=== PATIENT | female | born 1960 | race Caucasian/White ===

== ENCOUNTER 2018-10-11 19:12 | Emergency (ER) | payer MEDICAID ==
[~2018-10-11] VITALS: Ht 152.4 cm; Wt 55.8 kg
[~2018-10-11 19:12] MED LIST: LACL PO; MOM PO; MS CONTIN15 MG PO; NEU300 PO; NEURONTIN600 MG PO; NORCO1 TA2 PO; PREDNISONE50 MG PO; SYNTHROID0.1 MG PO; TRAMADOL HCL50 MG PO; ZOCOR20 MG PO
[2018-10-11 19:20] VITALS: Ht 152.4 cm; Wt 55.8 kg
[2018-10-11 20:57] LABS: UA SPECIFIC GRAVITY <=1.005 (1.005-1.035); microscopic required? YES; urine erythrocyte NEGATIVE (NEGATIVE)
[2018-10-11 20:59] LABS: BASOPHIL % 0.8 % (0-2); PLATELET COUNT 192 x10^3mcL (130-400); RED CELL DISTRIBUTION WIDTH 13.3 % (11.5-14.5)
[2018-10-11 21:04] LABS: CALCIUM 8.6 mg/dL (8.5-10.1); CARBON DIOXIDE 25.1 mmol/L (21-32); CHLORIDE SERUM 101 mmol/L (98-107); CREATININE SERUM 0.7 mg/dL (0.6-1.0); GFR1 > 60 mL/min; GLUCOSE SERUM 105 mg/dL (74-106); POTASSIUM SERUM 4.1 mmol/L (3.5-5.1); SODIUM SERUM 138 mmol/L (136-145)
[2018-10-11 21:10] LABS: ALBUMIN 3.6 g/dL (3.4-5.0); ALKALINE PHOSPHATASE 81 U/L (46-116); ALT/SGPT 30 U/L (14-59); AST/SGOT 18 U/L (15-37); BILIRUBIN TOTAL 0.6 mg/dL (0.20-1.00); LIPASE 80 IU/L (73-393); TOTAL PROTEIN, SERUM 7.6 g/dL (6.4-8.2)
[2018-10-11 22:40] VITALS: BP 101/59
== END 2018-10-11 22:40 | disposition home or self-care (01) ==
LOC: ED 19:12
PROVIDERS: Emergency Medicine
DX: N39.0 Urinary tract infection, site not specified (principal); R11.0 Nausea; R19.7 Diarrhea, unspecified; Z98.890 Other specified postprocedural states
CPT/HCPCS: J1885; J2405; J7030

== ENCOUNTER 2018-12-24 17:02 | Emergency (ER) | payer MEDICAID ==
[~2018-12-24] VITALS: Ht 154.9 cm; Wt 55.3 kg
[2018-12-24 17:13] VITALS: Ht 154.9 cm; Wt 55.3 kg
[2018-12-24 19:57] LABS: microscopic required? NO
[2018-12-24 20:01] LABS: BASOPHIL % 0.5 % (0-2); PLATELET COUNT 166 x10^3mcL (130-400); RED CELL DISTRIBUTION WIDTH 13.9 % (11.5-14.5)
[2018-12-24 20:04] LABS: UA SPECIFIC GRAVITY <=1.005 (1.005-1.035); urine erythrocyte NEGATIVE (NEGATIVE)
[2018-12-24 20:15] LABS: CALCIUM 7.9 mg/dL (8.5-10.1); CARBON DIOXIDE 24.9 mmol/L (21-32); CHLORIDE SERUM 98 mmol/L (98-107); GFR1 > 60 mL/min; GLUCOSE SERUM 96 mg/dL (74-106); POTASSIUM SERUM 3.1 mmol/L (3.5-5.1); SODIUM SERUM 134 mmol/L (136-145)
[2018-12-24 20:27] LABS: ALBUMIN 3.5 g/dL (3.4-5.0); ALKALINE PHOSPHATASE 82 U/L (46-116); ALT/SGPT 21 U/L (14-59); AST/SGOT 16 U/L (15-37); BILIRUBIN TOTAL 0.8 mg/dL (0.20-1.00); CHOLESTEROL 190 mg/dL (<200); HDL CHOLESTEROL 49 mg/dL (40-60); LIPASE 55 IU/L (73-393); TOTAL PROTEIN, SERUM 7.5 g/dL (6.4-8.2)
[2018-12-24 22:42] VITALS: BP 104/61
[2018-12-24 23:02] LABS: AMPHETAMINE QUAL UR NONE DETECTED (See below)
== END 2018-12-24 22:42 | disposition home or self-care (01) ==
LOC: ED 17:02
PROVIDERS: Emergency Medicine
DX: R50.9 Fever, unspecified (principal); R10.9 Unspecified abdominal pain; R11.10 Vomiting, unspecified; R19.7 Diarrhea, unspecified; E03.9 Hypothyroidism, unspecified; Z98.890 Other specified postprocedural states
CPT/HCPCS: 83880; 87804; J1885; J2270; J2405; J7030